=== PATIENT | male | born 1975 | race African-American/Black ===

== ENCOUNTER 2016-06-05 10:44 | Emergency (ER) | payer BC, OTHER ==
[2016-06-05] MEDS ORDERED: OPTIRAY 350 100 ML VIAL HMH IV ONE (10:45)
[2016-06-05] MEDS ORDERED: ONDANSETRON 4 MG VIAL ONE (12:31)
[2016-06-05] MEDS ORDERED: SODIUM CHLORIDE 0.9% 1,000 ML ONE (12:31)
== END 2016-06-05 15:17 | disposition home or self-care (01) ==
LOC: ER 10:44
DX: N20.0 Calculus of kidney (principal); R11.2 Nausea with vomiting, unspecified; R19.7 Diarrhea, unspecified; Z87.891 Personal history of nicotine dependence
CPT/HCPCS: 36415; 74177; 80053; 81003; 83690; 85025; 96361; 96374; 99284; J2405; Q9967